=== PATIENT | male | born 1950 | race Hispanic/Latino ===

== ENCOUNTER 2017-03-21 06:28 | Day surgery (SDC) | payer MEDICARE ==
[2017-03-21] MEDS ORDERED: NACL 0.9% 500 ML 500 ML IV SCH (07:00)
[2017-03-21 07:29] LABS: Basophils % (Auto) 0.6 % (0.0-1.8); Eosinophils % (Auto) 2.4 % (0.0-4.3); Hematocrit 46.5 % (35.5-45.6); Hemoglobin 15.8 gm/dl (11.8-15.2); Mean Corpuscular HGB Conc 34 % (32-34); Mean Corpuscular Hemoglobin 30 pg (28-32); Mean Corpuscular Volume 88 fl (84-94); Platelet Count 216 K/mm3 (140-440); Red Blood Count 5.32 M/mm3 (3.65-5.03); Red Cell Distribution Width 13.2 % (13.2-15.2); White Blood Count 8.2 K/mm3 (4.5-11.0)
[2017-03-21 07:40] LABS: INR 1.02 (0.87-1.13)
[2017-03-21 07:58] LABS: Anion Gap 18 mmol/L; Blood Urea Nitrogen 12 mg/dL (9-20); Calcium 9.2 mg/dL (8.4-10.2); Carbon Dioxide 28 mmol/L (22-30); Chloride 103.3 mmol/L (98-107); Glucose 109 mg/dL (75-100); Potassium 4.9 mmol/L (3.6-5.0); Sodium 144 mmol/L (137-145)
[2017-03-21] MEDS ORDERED: NITROGLYCERIN SYRINGE 3 ML ONE (08:03)
[2017-03-21] MEDS ORDERED: HEPARIN 10,000 UNITS/10 ML ONE (08:04)
[2017-03-21] MEDS: HEPARIN/NS 5000 UNIT/500ML(CATH LAB) 1,000 ML IR ONE ×2 (08:37→09:10)
[2017-03-21] MEDS: VERSED ONE ×2 (08:37→09:14)
[2017-03-21] MEDS: XYLOCAINE 2% INFILTRATI ONE ×3 (08:38→09:20)
[2017-03-21] MEDS: SUBLIMAZE ONE ×2 (08:38→09:14)
--- NOTE | 2017-03-21 10:09 | Discharge Summary ---
Short Stay Discharge Plan Activity: advance as tolerated Weight Bearing Status: Partial Weight Bearing Diet: low fat, low cholesterol, low salt Wound: keep clean and dry Special Instructions: no heavy lifting (3 days) Follow up with: SABRA RICE MD [Primary Care Provider] - 7 Days SAIRA PARR MD [Staff Physician] - 7 Days
--- NOTE | 2017-03-21 10:29 | Operative Report ---
Operative Report Operative Report: Cardiac catheterization report Date of procedure 03/20/2017 Reason for procedure: The patient is a 66-year-old man with coronary artery disease who underwent coronary stenting of the mid LAD a year and a half ago for an acute ST elevation myocardial infarction. Since then, he has been found with severe aortic stenosis. He has been evaluated by CT surgery and scheduled for aortic valve replacement. The aortic stenosis and left ventricular function assessment were done noninvasively, and the surgeons referred him today for coronary arteriography in anticipation of his upcoming surgery. It is my understanding that a right heart catheterization or invasive transaortic valvular assessment is not required at this time. The patient was prepped and draped in a sterile fashion after informed consent. The right femoral artery was entered using surgical technique followed by placement of a 5 [place] sheath. Selective left and right coronary angiography was performed. A 5 [place]ese #4 left Jamee catheter was used for left coronary angiography. A 5 [place]ese multipurpose catheter was used for right coronary angiography. Catheters were removed, sheaths removed and hemostasis achieved at the right femoral arteriotomy using an Angio-Seal device. The patient was returned to the postprocedure units in stable condition. There were no complications. Findings: Hemodynamics: Ascending area pressure was 186/92. Coronary angiography: On fluoroscopy, there was moderate to severe calcification around the aortic annulus. Left main coronary artery was short and free of significant disease. The left anterior descending artery contained a stent in its midsegment. The stented segment was widely patent, with no significant restenosis. Otherwise, mild nonobstructive lesions were noted in the proximal LAD outside the stented segment. There were 2 sequential 10-20% lesions identified in the proximal and proximal to mid LAD. The circumflex artery and its obtuse marginal branches were angiographically normal. The right coronary artery was dominant. 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 There are mild irregularities of the proximal segment of this vessel, otherwise is vessel and its branches were free of significant disease. Conclusion: Widely patent mid LAD stent. Otherwise, mild nonobstructive disease of the proximal to mid LAD, no significant obstructive residual lesions noted.
[2017-03-21] MEDS ORDERED: NACL 0.9% 1000 ML 1,000 ML IV SCH (11:00)
[2017-03-21 13:38] VITALS: BP 142/68
== END 2017-03-21 13:10 | disposition home or self-care (01) ==
LOC: CATH 06:28 → OPU 06:28
PROVIDERS: ATTEND Internal Medicine Cardiovascular Disease
DX: I25.10 Atherosclerotic heart disease of native coronary artery without angina pectoris (principal); I35.0 Nonrheumatic aortic (valve) stenosis; I10 Essential (primary) hypertension; D64.9 Anemia, unspecified; E78.5 Hyperlipidemia, unspecified; F17.200 Nicotine dependence, unspecified, uncomplicated; Z86.73 Personal history of transient ischemic attack (TIA), and cerebral infarction without residual deficits; Z86.19 Personal history of other infectious and parasitic diseases; Z98.890 Other specified postprocedural states; Z79.01 Long term (current) use of anticoagulants; Z79.899 Other long term (current) drug therapy; Z79.82 Long term (current) use of aspirin; Z95.5 Presence of coronary angioplasty implant and graft; Z83.49 Family history of other endocrine, nutritional and metabolic diseases; Z82.49 Family history of ischemic heart disease and other diseases of the circulatory system
CPT/HCPCS: 36415; 80048; 85025; 85610; 85730; 93005; 93010; 93454; C1760; C1894; J1644; J2250; J3010; J7040; Q9967

== ENCOUNTER 2019-11-17 11:56 | Emergency (ER) | payer MEDICARE ==
[2019-11-17 12:05] VITALS: BP 117/69
== END 2019-11-17 14:03 | disposition left against medical advice (07) ==
LOC: ED 11:56
DX: R47.81 Slurred speech (principal); Z53.21 Procedure and treatment not carried out due to patient leaving prior to being seen by health care provider